=== PATIENT | male | born 1960 | race Caucasian/White ===

== ENCOUNTER 2018-01-07 18:01 | Observation (INO) | payer OTHER ==
[2018-01-07] MEDS ORDERED: Metoprolol Tartrate IV* 1 MG/ML 5 ML VIAL IV ONE (18:17)
[2018-01-07] MEDS ORDERED: Labetalol IV* 200 MG in NS 0.9% 250 ML* 160 ML IVPB ONE (18:24)
[2018-01-07] MEDS ORDERED: Aspirin 81 mg CHEW TAB* 81 MG TAB.CHEW PO ONE (18:24)
--- NOTE | 2018-01-07 18:37 | ED ---
HPI Chest Pain - HPI Summary HPI Summary: This is scribe Florentinoduke Chapa documenting for attending Dr. Jani Ambrose MD. A 57 y/o male presents to ED c/o chest pain reaching 1-2/10 in severity. Additionally c/o numbness across his face and generalized sickness. In the ED, the patient has a rate of 78 BPM, O2 saturation of 99% and blood pressure of 210 /123. As per triage, "Pt states he has numbness across the face about an hour ago. and states he doesnt feel well. States he has seven stents cardiac hx. Pt says he has a bit of chest pain, Took a nitro about an hour ago and he said made it worse". According to the patient, he is not feeling well and experiences numbness across his face. He noted that he feels a little "foggy" and lightheaded, however, denies dizziness and SOB. He does also have chest pain and tightness. Patient took NTG to alleviate symptoms but it did not help. PMHx of several stents and CA. PCP in [place]. - History of Current Complaint Chief Complaint: EDChestPainROMI Time Seen by Provider: 01/07/18 18:16 Hx Obtained From: Patient Onset/Duration: Started Hours Ago, Still Present Timing: Constant Initial Severity: Mild Current Severity: Mild Pain Intensity: 2 Pain Scale Used: 0-10 Numeric Chest Pain Radiates: No Character: Tightness Aggravating Factor(s): Nothing Alleviating Factor(s): Nothing Associated Signs and Symptoms: Positive: Chest Pain, Numbness - In face, Lightheadedness. Negative: Dizziness, Shortness of Breath, Fever - Allergy/Home Medications Allergies/Adverse Reactions: Allergies Allergy/AdvReac Type Severity Reaction Status Date / Time No Known Allergies Allergy Verified 01/07/18 18:09 Home Medications: Home Medications Aspirin 81 mg PO DAILY 01/07/18 [History Confirmed 01/07/18] Clonidine HCl 0.3 MG 0.3 mg PO BID 01/07/18 [History Confirmed 01/07/18] Glipizide 10 mg PO BID 01/07/18 [History Confirmed 01/07/18] Irbesartan 300 mg PO DAILY 01/07/18 [History Confirmed 01/07/18] Januvia 100 mg PO DAILY 01/07/18 [History Confirmed 01/07/18] Lasix 40 mg PO BID 01/07/18 [History Confirmed 01/07/18] Magnesium 400 mg PO DAILY 01/07/18 [History Confirmed 01/07/18] Metoprolol Tartrate TAB* 100 mg PO DAILY 01/07/18 [History Confirmed 01/07/18] Plavix 75 mg PO DAILY 01/07/18 [History Confirmed 01/07/18] Potassium 10 meq PO DAILY 01/07/18 [History Confirmed 01/07/18] PMH/Surg Hx/FS Hx/Imm Hx Endocrine/Hematology History: Reports: Hx Diabetes Cardiovascular History: Reports: Hx Hypertension, Other Cardiovascular Problems/ Disorders - CA (2) - Surgical History Surgery Procedure, Year, and Place: 3 Knee surguries. Infectious Disease History: No Infectious Disease History: Denies: Traveled Outside the [place] in Last 30 Days - Family History Known Family History: Positive: Hypertension - Father, Diabetes - Father - Social History Alcohol Use: Occasionally Hx Substance Use: No Substance Use Type: Reports: None Hx Tobacco Use: No Review of Systems Positive: Other - POSITIVE: Generalized sickness, feels "foggy". Negative: Fever, Chills Negative: Erythema Positive: Chest Pain Negative: Shortness Of Breath, Cough Negative: Abdominal Pain, Vomiting, Nausea Negative: dysuria, hematuria Negative: Myalgia, Edema Negative: Rash Neurological: Other - NEGATIVE: Dizziness;POSITIVE: Lightheadedness Positive: Numbness - Across face All Other Systems Reviewed And Are Negative: Yes Physical Exam - Summary Physical Exam Summary: Constitutional: Well-developed, Well-nourished, Alert. (-) Distressed Skin: Warm, Dry HENT: Normocephalic; Atraumatic Eyes: Conjunctiva normal Neck: Musculoskeletal ROM normal neck. (-) JVD, (-) Stridor, (-) Tracheal deviation Cardio: Rhythm regular, rate normal, Heart sounds normal; Intact distal pulses; The pedal pulses are 2+ and symmetric. Radial pulses are 2+ and symmetric. (-) Murmur Pulmonary/Chest wall: Effort normal. (-) Respiratory distress, (-) Wheezes, (-) Rales Abd: Soft, (-) epigastric tenderness, (-) Distension, (-) Guarding, (-) Rebound Musculoskeletal: (-) Edema Lymph: (-) Cervical adenopathy Neuro: Alert, Oriented x3 Psych: Mood and affect Normal GCS: 15 Triage Information Reviewed: Yes Vital Signs On Initial Exam: Initial Vitals Temp Pulse Resp BP Pulse Ox 99.2 F 81 16 200/117 98 01/07/18 18:04 01/07/18 18:04 01/07/18 18:04 01/07/18 18:04 01/07/18 18:04 Vital Signs Reviewed: Yes Diagnostics - Vital Signs Vital Signs Temp Pulse Resp BP Pulse Ox 01/07/18 18:04 99.2 F 81 16 200/117 98 - Laboratory Result Diagrams: 01/07/18 18:29 01/07/18 18:29 Lab Statement: Any lab studies that have been ordered have been reviewed, and results considered in the medical decision making process. - Radiology CXR Radiology Interpretation Completed By: Radiologist - No evidence for acute intrathoracic disease. ED physician reviewed this radiology report. - CT BRAIN CT CT Interpretation Completed By: Radiologist - No acute findings. ED physician reviewed this radiology report. - EKG 1813 Cardiac Rate: NL - 79 BPM EKG Rhythm: Sinus Rhythm EKG Interpretation: ST depression laterally, negative STEMI. 2035 Cardiac Rate: NL - 70 BPM EKG Rhythm: Sinus Rhythm EKG Interpretation: Negative STEMI, ST Depressions somewhat improved. Re-Evaluation - Re-Evaluation First Eval Re-Evaluation Time: 20:25 Comment: Patient is still symptomatic. Instruction to nursing staff to titrate his dose of Labetalol. Chest Pain Course/Dx - Course Course Of Treatment: A 57 y/o male presents to ED c/o chest pain reaching 1-2/ 10 in severity. Additionally c/o numbness across his face and generalized sickness. In the ED, the patient has a rate of 78 BPM, O2 saturation of 99% and blood pressure of 210/123. A CXR revealed no evidence for acute intrathoracic disease. A Brain CT revealed no acute findings. A EKG revealed NSR of 79 BPM, ST depressions laterally, negative ST. Another EKG revealed a NSR of 70 BPM, negative STEMI, ST depressions somewhat improved. In the ED course, the patient recieved Aspirin, Labetalol, Ativan and Lopressor. During reevaluation, Patient is still symptomatic. Instruction to nursing staff to titrate his dose of Labetalol. Patient care was discussed with Dr. Cardoso who accepts patient for admission. Patient will be admitted with a diagnosis of hypertensive emergency. Patient is agreeable with this plan. - Provider Notifications Discussed Care Of Patient With: Jhonatan High Time Discussed With Above Provider: 21:13 Instructed by Provider To: Other - Dr. High is aware of ischemic changes. He will consult with patient. Consult with Dr. Cardoso who accepts patient for admission. Discharge - Sign-Out/Discharge Documenting (check all that apply): Patient Departure - ADMIT - Discharge Plan Condition: Stable Disposition: ADMITTED TO [facility] Referrals: No Primary Care Phys,NOPCP [Primary Care Provider] -
[2018-01-07 18:42] LABS: ABS Basophils 0.1 10^3/ul (0-0.2); ABS Eosinophils 0.2 10^3/ul (0-0.6); ABS Lymphocytes 1.7 10^3/ul (1.0-4.8); ABS Monocytes 0.5 10^3/ul (0-0.8); ABS Nucleated RBC 0 10^3/ul; Eosinophil % 2.5 % (0-6); Hematocrit 40 % (42-52); Mean Corpuscular HGB Conc 35 g/dl (31-36); Mean Corpuscular Hemoglobin 27 pg (27-31); Mean Corpuscular Volume 79 fL (80-94); Mean Platelet Volume 7.4 um3 (7.4-10.4); Nucleated Red Blood Cells % 0.2; Platelet Count 190 10^3/ul (150-450); Red Cell Distribution Width 14 % (10.5-15); White Blood Count 7.5 10^3/ul (3.5-10.8)
[2018-01-07 19:06] LABS: EGFR Non-African American 74.1 (>60)
--- NOTE | 2018-01-07 19:56 | RAD ---
Indication: Chest pain. Coronary artery disease with previous myocardial infarction and multiple stents. Comparison: No relevant prior exams available on the [facility] PACS for comparison. Technique: Upright AP 1907 hours Report: Clear lungs and pleural spaces. Negative for pneumothorax. Upper normal heart size accounting for portable AP technique. Unremarkable central pulmonary vasculature and mediastinal contours. IMPRESSION: #. No evidence for acute intrathoracic disease.
[2018-01-07] MEDS ORDERED: LORazepam INJ* 2 MG/ML 1 ML VIAL IV PUSH ONE (21:55)
[2018-01-07] MEDS ORDERED: LORazepam INJ* 2 MG/ML 1 ML VIAL ONE (21:55)
--- NOTE | 2018-01-07 22:41 | HP ---
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 He denies F/C, cough, congestion, focal weakness, or change in speech/swallow/vision. ED evaluation is notable for a systolic in the 170s associated with an abnormal ECG showing ST depression and deep T-wave inversions in the anterolateral leads which improved with BP control via labetalol GTT. Troponins have been negative x3. I agreed he would be best served with further observation, but he declined stress testing as he has an appointment this coming Sunday with his tile machine operator and will arrange for it , if his tile machine operator feels it is necessary. PMedHx DM2 CAD/MD x2/stent x7 over 4 catheterizations HTN HLD "late stage Lyme" Ambulatory Orders Aspirin 81 mg PO DAILY 01/07/18 Clonidine HCl 0.3 MG 0.3 mg PO BID 01/07/18 Glipizide 10 mg PO BID 01/07/18 Irbesartan 300 mg PO DAILY 01/07/18 Januvia 100 mg PO DAILY 01/07/18 Lasix 40 mg PO BID 01/07/18 Magnesium 400 mg PO DAILY 01/07/18 Metoprolol Tartrate TAB* 100 mg PO DAILY 01/07/18 Plavix 75 mg PO DAILY 01/07/18 Potassium 10 meq PO DAILY 01/07/18 Allergies No Known Allergies Allergy (Verified 01/07/18 18:09) PSurgHx C-spine spur removal tonsillectomy cholecystectomy B knee arthroscopy B knee lateral patellar release SocHx: no tobacco HX, occasional alcohol, no recreational drugs; ; works as a traveling nurse currently working for [employer]; full code status FamHx: Mother: alive mid-70s w/ OA; Father: alive mid-70s, DM2, HTN; Sister: alive, HX JRA; Brother: alive, HX spinal FX ROS: as above, otherwise reviewed and all were negative vitals: Vital Signs Temp 37.3 C 01/07/18 18:04 Pulse 77 01/07/18 22:18 Resp 16 01/07/18 22:18 BP 126/89 01/07/18 22:18 Pulse Ox 96 01/07/18 22:18 Intake & Output 01/06/18 01/07/18 01/07/18 23:59 11:59 23:59 Weight 106.594 kg Constitutional: NAD, normally developed, obese white male HEENM: atraumatic; sclera/conjunctiva: anicteric/clear; hearing: clinically intact; oropharynx: clear, mucosa moist Neck: soft tissue: non-tender; thyroid: normal Pulmonary: clear to auscultation bilaterally, good aeration, no accessory muscle use CV: RR/RR, normal S1S2, no carotid bruit, no jugular venous distention, 2+ B DP/ PT, 2+ BLE edema Abdominal: soft, non-distended, non-tender, no rebound/guarding/rigidity, normoactive bowel sounds, no hepatosplenomegaly or masses, no costovertebral angle tenderness Musculoskeletal: general: grossly intact, non-tender; gait: stable Integumental: normal appearance and texture of exposed skin Psychiatric orientation: AA&O to PPS affect: calm mood: cooperative eye contact: good content: reliable responses: timely insight: good Testing: Lab Results 01/07/18 01/07/18 01/07/18 Range/Units 18:29 18:29 18:29 WBC 7.5 (3.5-10.8) 10^3/ul RBC 5.10 (4.00-5.40) 10^6/ul Hgb 14.0 (14.0-18.0) g/dl Hct 40 L (42-52) % MCV 79 L (80-94) fL MCH 27 (27-31) pg MCHC 35 (31-36) g/dl RDW 14 (10.5-15) % Plt Count 190 (150-450) 10^3/ul MPV 7.4 (7.4-10.4) um3 Neut % (Auto) 66.5 (38-83) % Lymph % (Auto) 23.0 L (25-47) % [place] % (Auto) 7.0 (0-7) % Eos % (Auto) 2.5 (0-6) % Baso % (Auto) 1.0 (0-2) % Absolute Neuts (auto) 5.0 (1.5-7.7) 10^3/ul Absolute Lymphs (auto) 1.7 (1.0-4.8) 10^3/ul Absolute Monos (auto) 0.5 (0-0.8) 10^3/ul Absolute Eos (auto) 0.2 (0-0.6) 10^3/ul Absolute Basos (auto) 0.1 (0-0.2) 10^3/ul Absolute Nucleated RBC 0 10^3/ul Nucleated RBC % 0.2 Sodium 139 (135-145) mmol/L Potassium 3.6 (3.5-5.0) mmol/L Chloride 99 L (101-111) mmol/L Carbon Dioxide 30 (22-32) mmol/L Anion Gap 10 (2-11) mmol/L BUN 19 (6-24) mg/dL Creatinine 1.04 (0.67-1.17) mg/dL Est GFR ( Amer) 89.7 (>60) Est GFR (Non-Af Amer) 74.1 (>60) BUN/Creatinine Ratio 18.3 (8-20) Glucose 167 H (70-100) mg/dL Lactic Acid 1.4 (0.5-2.0) mmol/L Calcium 9.5 (8.6-10.3) mg/dL Total Bilirubin 0.50 (0.2-1.0) mg/dL AST 28 (13-39) U/L ALT 48 (7-52) U/L Alkaline Phosphatase 135 H (34-104) U/L Troponin I 0.01 (<0.04) ng/mL Total Protein 7.0 (6.4-8.9) g/dL Albumin 4.3 (3.2-5.2) g/dL Globulin 2.7 (2-4) g/dL Albumin/Globulin Ratio 1.6 (1-3) 01/07/18 Range/Units 21:17 WBC (3.5-10.8) 10^3/ul RBC (4.00-5.40) 10^6/ul Hgb (14.0-18.0) g/dl Hct (42-52) % MCV (80-94) fL MCH (27-31) pg MCHC (31-36) g/dl RDW (10.5-15) % Plt Count (150-450) 10^3/ul MPV (7.4-10.4) um3 Neut % (Auto) (38-83) % Lymph % (Auto) (25-47) % [place] % (Auto) (0-7) % Eos % (Auto) (0-6) % Baso % (Auto) (0-2) % Absolute Neuts (auto) (1.5-7.7) 10^3/ul Absolute Lymphs (auto) (1.0-4.8) 10^3/ul Absolute Monos (auto) (0-0.8) 10^3/ul Absolute Eos (auto) (0-0.6) 10^3/ul Absolute Basos (auto) (0-0.2) 10^3/ul Absolute Nucleated RBC 10^3/ul Nucleated RBC % Sodium (135-145) mmol/L Potassium (3.5-5.0) mmol/L Chloride (101-111) mmol/L Carbon Dioxide (22-32) mmol/L Anion Gap (2-11) mmol/L BUN (6-24) mg/dL Creatinine (0.67-1.17) mg/dL Est GFR ( Amer) (>60) Est GFR (Non-Af Amer) (>60) BUN/Creatinine Ratio (8-20) Glucose (70-100) mg/dL Lactic Acid (0.5-2.0) mmol/L Calcium (8.6-10.3) mg/dL Total Bilirubin (0.2-1.0) mg/dL AST (13-39) U/L ALT (7-52) U/L Alkaline Phosphatase (34-104) U/L Troponin I 0.01 (<0.04) ng/mL Total Protein (6.4-8.9) g/dL Albumin (3.2-5.2) g/dL Globulin (2-4) g/dL Albumin/Globulin Ratio (1-3) ECG, personally reviewed: NSR rate 79, ST depression V4-5, T-wave inversion V4-6 /I/II; improved from earlier; no old comparison CXR, personally reviewed: IMPRESSION: #. No evidence for acute intrathoracic disease. CT brain WO, personally reviewed: IMPRESSION: No acute findings. Impression: 57M HX CAD/MD/stenting, DM2, HTN, HLD presenting with atypical chest pain for r/o ACS DIAGNOSIS & PLAN Primary atypical chest pain r/o ACS : telemetry : trend troponin : supplemental oxygen : aspirin given in ED : declines stress testing, has appointment with his tile machine operator Sunday : supportive care Secondary DM2 : continue glipizide & Januvia : consistent carb diet : correctional insulin w/ ACHS glucometry CAD/MD x2/stent x7 over 4 catheterizations : continue aspirin, clopidogrel HTN : continue irbesartan, metoprolol, clonidine, & furosemide HLD : heart healthy diet Admission Rational: Inpatient as without the above interventions the risk of impending adverse outcome is unacceptably high; inappropriate for the outpatient setting DVTp: heparin SQ Code Status: full HCP: children
[2018-01-07] MEDS ORDERED: cloNIDine TAB* 0.1 MG PO ONE (22:50)
[2018-01-08] MEDS ORDERED: Ondansetron ODT TAB* 4 MG PO PRN (01:01)
[2018-01-08] MEDS ORDERED: Acetaminophen TAB* 325 MG PO PRN (01:01)
[2018-01-08] MEDS ORDERED: traMADol TAB* 50 MG PO PRN (01:01)
[2018-01-08] MEDS ORDERED: Melatonin 3 MG TAB PO PRN (01:01)
[2018-01-08] MEDS ORDERED: NS 0.9% 1000 ML* 1,000 ML IV SCH (01:15)
--- NOTE | 2018-01-08 07:36 | RAD ---
INDICATION: Headache and hypertension COMPARISON: None. TECHNIQUE: Contiguous axial sections of the brain were obtained from the skull base to the vertex without contrast. FINDINGS: The ventricles, cisterns and sulci are within normal limits. The madsen-white matter differentiation is adequately maintained and there is no sulcal effacement. No significant focal abnormality or mass effect is present. There is no evidence for intracranial hemorrhage. No significant focal osseous abnormality is present. The visualized portion of the paranasal sinuses appear clear. The mastoid air cells are well aerated bilaterally. IMPRESSION: Normal CT of the brain.
[2018-01-08 08:38] VITALS: BP 153/79
[2018-01-08] MEDS ORDERED: JANUVIA 100 MG PO SCH (09:00)
[2018-01-08] MEDS ORDERED: Aspirin 81 mg CHEW TAB* 81 MG TAB.CHEW PO SCH (09:00)
[2018-01-08] MEDS ORDERED: glipiZIDE TAB* 5 MG PO SCH (09:00)
[2018-01-08] MEDS ORDERED: Magnesium Oxide TAB* 400 MG PO SCH (09:00)
[2018-01-08] MEDS ORDERED: Metoprolol Succinate XL TAB* 100 MG PO SCH (09:00)
[2018-01-08] MEDS ORDERED: Furosemide TAB* 40 MG PO SCH (09:00)
[2018-01-08] MEDS ORDERED: cloNIDine TAB* 0.1 MG PO SCH (09:00)
[2018-01-08] MEDS ORDERED: Clopidogrel TAB* 75 MG PO SCH (09:00)
[2018-01-08] MEDS ORDERED: Losartan TAB* 25 MG PO SCH (09:00)
[2018-01-08] MEDS ORDERED: Potassium Chlor TAB* 10 MEQ TAB.ER PO SCH (21:00)
--- NOTE | 2018-01-09 04:15 | DS ---
DISCHARGE SUMMARY: DATE OF ADMISSION: 01/07/18 DATE OF DISCHARGE: 01/08/18 ADMITTING PROVIDER: Ja Cardoso MD. PRIMARY CARE PHYSICIAN: Estefania Rojo NP of [place], [place]. INCOME TAX INVESTIGATOR: Dr. Enrique Garcia, [place], [place]. CHIEF COMPLAINT: Chest pain, fatigue, numbness, and tingling around the eyes. PRINCIPAL DIAGNOSIS: Hypertensive urgency; acute coronary syndrome, ruled out. HISTORY OF PRESENT ILLNESS/HOSPITAL COURSE: Kristian Sandoval is a 57-year-old male with history of myocardial infarction/coronary artery disease with 7 stents , diabetes mellitus type 2, hypertension, hyperlipidemia, who developed fatigue , mild dull nonradiating substernal chest pain associated with mild lightheadedness and numbness and tingling bilaterally across his eyes, but without shortness of breath, nausea, vomiting, palpitations, diaphoresis. Please see H and P of Ja Cardoso for full details. In the emergency room , his blood pressure was high as 210/123. He was admitted for ACS rule out. His initial EKG showed ST depressions and T-wave inversions in the anterolateral leads, which improved with blood pressure control. He reportedly get symptomatic(light headedness) when his blood pressures were as low as 130s/70s. Troponins were negative x4 at 0.01 and he refused consideration for a stress test given his planned appointment on Sunday, 01/09 with his Odd Job Worker in [place]. He suspects that his pain was more gastro-intestinal related and states that nitroglycerin actually worsened his pain rather than improved it. He is being discharged with recommendation for outpatient stress test or further evaluation given his extensive coronary artery disease history and abnormal EKGs. DISCHARGE MEDICATIONS: Include (no changes in medication): 1. Aspirin 81 mg daily. 2. Clonidine 0.3 mg p.o. b.i.d. 3. Diltiazem extended release 120 mg p.o. b.i.d. 4. Glipizide 10 mg p.o. b.i.d. 5. Irbesartan 300 mg p.o. daily. 6. Januvia 100 mg p.o. daily. 7. Lasix 40 mg p.o. b.i.d. 8. Magnesium 400 mg p.o. daily. 9. Metoprolol succinate 100 mg p.o. daily. 10. Plavix 75 mg daily. 11. Potassium 10 mEq p.o. daily. ACTIVITY LEVEL: No restrictions. DIET: Heart healthy, carbohydrate consistent, unchanged referrals. FOLLOWUP: The patient is to follow up with Enrique Garcia on 01/09 as already scheduled. He also follows up with Estefania Rojo NP, his primary care physician within 5 days of discharge. TIME SPENT ON DISCHARGE: 35 minutes. [id number]/[facility] #: [id number] [place]
== END 2018-01-08 11:30 | disposition home or self-care (01) ==
LOC: ED 18:01 → MEDTELE 01-08 00:59 → AA 01-08 10:30 → MEDTELE 01-08 10:32
PROVIDERS: ADMIT Hospitalist; ATTEND Internal Medicine
DX: R07.9 Chest pain, unspecified (principal); E11.9 Type 2 diabetes mellitus without complications; I25.10 Atherosclerotic heart disease of native coronary artery without angina pectoris; I25.2 Old myocardial infarction; I10 Essential (primary) hypertension; E78.5 Hyperlipidemia, unspecified; A69.20 Lyme disease, unspecified; Z79.82 Long term (current) use of aspirin; R42 Dizziness and giddiness
CPT/HCPCS: 36415; 70450; 71045; 80053; 83605; 84484; 85025; 93005; 99285; A9270-GY; G0378; J2060; J3490